=== PATIENT | male | born 1950 | race Caucasian/White ===

== ENCOUNTER 2023-05-04 08:49 | Outpatient (REF) | payer OTHER, SELFPAY ==
[2023-05-04 14:45] LABS: Appearance Urine Clear; Color Urine Yellow; Glucose Urine UA Negative (Negative); Leukocyte Esterase Urine Trace (Negative); Nitrite Urine Negative (Negative); UMIC TRIGGER UA YES; Urine Blood Negative (Negative); Urine Ketones Negative (Negative); Urine Protein Negative (Neg-Trace)
[2023-05-04 14:56] LABS: Bacteria Urine None Seen (None Seen); Hyaline Casts Urine 0-2 /LPF (0-2); RBC Urine 0-2 /HPF (0-2); Squamous Epithelial Cell Urine 0-2 /HPF (0-2); WBC Urine 0-5 /HPF (0-5)
[2023-05-04 20:10] LABS: Anion Gap 21 (12-20); Blood Urea Nitrogen 23 mg/dL (9-16); Carbon Dioxide 20 mmol/L (22-29); Chloride 99 mmol/L (96-108); Estimated Glomerular Filt Rate > 60; Glucose Random 90 mg/dL (60-115); Potassium 3.7 mmol/L (3.3-5.1); Sodium 136 mmol/L (135-145)
== END 2023-05-04 08:50 | disposition home or self-care (01) ==
LOC: HO.CHCLDS 08:49
PROVIDERS: Visit Provider Internal Medicine
DX: I10 Essential (primary) hypertension (principal); R30.0 Dysuria
CPT/HCPCS: 36415; 80048; 81001

== ENCOUNTER 2023-12-22 09:44 | Outpatient (REF) | payer OTHER, SELFPAY ==
[2023-12-22 14:12] LABS: MANUAL DIFF FLAG NO
[2023-12-22 14:15] LABS: Basophils Absolute Auto 0.1 X10*3/uL (0.0-0.2); Basophils Percent Auto 0.6 % (0-2); Eosinophils Absolute Auto 0.1 X10*3/uL (0.0-0.4); Eosinophils Percent Auto 0.6 % (0-4); Hematocrit 47.4 % (42.0-52.0); Hemoglobin 16.3 g/dl (14.0-18.0); Imm Gran Abs Auto 0.03 X10*3/uL (0.00-0.03); Imm Gran Pct Auto 0.4 % (0.0-0.4); Lymphocytes Absolute Auto 2.7 X10*3/uL (1.2-4.9); Lymphocytes Percent Auto 33.8 % (20-40); Mean Corpuscular HGB Conc 34.4 g/dl (31.0-36.0); Mean Corpuscular Volume 90.1 fL (80.0-98.0); Mean Platelet Volume 10.4 fL (9.4-12.4); Monocytes Absolute Auto 0.4 X10*3/uL (0.1-1.2); Monocytes Percent Auto 5.6 % (2-11); Neutrophils Absolute Auto 4.6 x10*3/uL (2.0-8.3); Platelet Count 210 X10*3/uL (160-400); Red Blood Count 5.26 X10*6/uL (4.60-5.80); Red Cell Distribution Width 13.3 % (11.0-16.0); White Blood Count 7.9 X10*3/uL (4.8-10.8)
[2023-12-22 15:00] LABS: Anion Gap 16 (12-20); Blood Urea Nitrogen 18 mg/dL (9-16); Calcium 9.5 mg/dL (8.4-10.2); Carbon Dioxide 26 mmol/L (22-29); Chloride 99 mmol/L (96-108); Cholesterol 156 mg/dL (<200); Estimated Glomerular Filt Rate > 60; Glucose Random 73 mg/dL (60-115); HDL Cholesterol 45 mg/dL (>40); LDL Cholesterol Calculated 79 mg/dL (<100); Potassium 3.6 mmol/L (3.3-5.1); Sodium 137 mmol/L (135-145); Triglycerides 160 mg/dL (<150)
[2023-12-22 15:18] LABS: TSH reflex Free T4 1.65 uIU/mL (0.32-4.0)
== END 2023-12-22 09:45 | disposition home or self-care (01) ==
LOC: HO.CHCLDS 09:44
PROVIDERS: Visit Provider Internal Medicine
DX: I10 Essential (primary) hypertension (principal)
CPT/HCPCS: 36415; 80048; 80061; 84443; 85025

== ENCOUNTER 2024-06-12 10:06 | Outpatient (AMB) | payer OTHER, SELFPAY ==
--- NOTE | 2024-06-12 10:10 | MHC.OFFVIS ---
Intake Visit Reasons: Dysuria/Enlarged Prostate Intake Note: Patient is present for dysuria/ enlarged prostae Urology Medication:none Antibiotic Allergy:none Blood Thinner:none [employer] Director Required: No Allergies No Known Allergies Allergy (Verified 06/12/24 10:11) Medication List - Last Reconciled 06/12/24 by Jarod Tong MD albuterol sulfate 90 mcg/actuation inhalation atorvastatin 40 mg PO DAILY clopidogrel 75 mg PO DAILY finasteride 5 mg PO DAILY 90 days losartan 100 mg PO DAILY oxycodone mg PO tamsulosin 0.4 mg PO DAILY umeclidinium 62.5 mcg/actuation (Incruse Ellipta) 1 inh inhalation DAILY HPI Comments Details: Abel is a very pleasant male. He is a patient of Dr. Cortes. He seen for the following urologic conditions - urinary retention Recent episode retention after vascular procedure - AAA repair Shannon catheter placed Removed PCP Longstanding on tamsulosin And finasteride for six-month Review of Systems Const Denies chills and Denies fever(s) Card Reports no additional complaints and Denies syncope Resp Denies cough GI Denies abdominal pain and Denies heartburn Reports as per HPI and Denies change in libido Neuro Denies syncope Psych Denies change in libido Endo Denies change in libido Physical Exam Const General: cooperative, healthy appearing, comfortable and no acute distress Orientation/consciousness: patient oriented x3 HEENT Face and sinus: Yes normal facial exam Mouth: moist mucous membranes Neck Neck: Yes normal visual inspection, Yes full ROM and Yes trachea midline Chest Chest palpation & inspection: normal inspection of the chest Resp Effort & Inspection: normal respiratory effort, able to speak in complete sentences and no respiratory distress GI Inspection: Yes normal to inspection Back/Spine/Pelvis Cervical Spine: normal cervical lordosis Thoracic/Lumbar Spine: thoracic and lumbar spine normal to inspection Skin General skin exam: no rashes or lesions noted Neuro General: patient oriented x3, gait normal, tone normal and moves all extremities Extrem General: Yes normal to inspection and Yes capillary refill normal Assessment & Plan Assessment & Plan (1) Weak urinary stream: Code(s): R39.12 - Poor urinary stream Category: Medical (2) Urinary retention with incomplete bladder emptying: Code(s): R33.9 - Retention of urine, unspecified Category: Medical Plan Six-month follow-up Medications: New finasteride 5 mg PO DAILY 90 days 90 tabs 1RF N13.8 - Other obstructive and reflux uropathy, N40.1 - Benign prostatic hyperplasia with lower urinary tract symptoms, R33.9 - Retention of urine, unspecified Patient Instructions: Imaging studies, laboratory and physical exam results were discussed and reviewed in detail. No major barriers to patient understanding were identified. An opportunity to ask questions regarding the treatment plan was provided. All questions were answered. The patient expressed understanding and agreement with the above treatment plan. The patient is aware they should contact our office by phone for worsening of their current condition or the appearance of new urologic symptoms. Compliance is encouraged with any medications and followup testing that is ordered. It is a privilege to participate in the urologic care of your patient. If you have any questions or concerns regarding treatment for the above conditions, or other urologic issues, please do not hesitate to contact me. The office telephone contact is [phone]. This note is constructed using voice recognition software. While every effort has been made to ensure accuracy cash person errors may have been included. Yours sincerely, Dr Jarod Tong MD, [facility] Providers of Expert, Compassionate Care for the Genitourinary System Coding Level of Care Code New Pt Level 4 (78632) Diagnoses Weak urinary stream R39.12 Urinary retention with incomplete bladder emptying R33.9
== END 2024-06-12 11:07 | disposition home or self-care (01) ==
PROVIDERS: PCP Internal Medicine; Visit Provider Urology
DX: R39.12 Poor urinary stream (principal); R33.9 Retention of urine, unspecified
CPT/HCPCS: 99204

== ENCOUNTER → 2024-06-12 10:06 | Outpatient (BNVA) | payer OTHER, SELFPAY | PROVIDERS: PCP Internal Medicine; Visit Provider Urology | DX: R39.12 Poor urinary stream (principal); R33.9 Retention of urine, unspecified | CPT/HCPCS: 99202 ==

== ENCOUNTER 2024-07-16 15:56 | Outpatient (REF) | payer OTHER, SELFPAY ==
[2024-07-16 17:57] LABS: MANUAL DIFF FLAG NO
[2024-07-16 18:18] LABS: Basophils Percent Auto 0.5 % (0-2); Eosinophils Absolute Auto 0.1 X10*3/uL (0.0-0.4); Eosinophils Percent Auto 1.2 % (0-4); Hematocrit 41.9 % (42.0-52.0); Hemoglobin 13.9 g/dl (14.0-18.0); Imm Gran Abs Auto 0.03 X10*3/uL (0.00-0.03); Imm Gran Pct Auto 0.4 % (0.0-0.4); Lymphocytes Absolute Auto 2.2 X10*3/uL (1.2-4.9); Lymphocytes Percent Auto 28.6 % (20-40); Mean Corpuscular HGB Conc 33.2 g/dl (31.0-36.0); Mean Corpuscular Hemoglobin 30.2 pg (27.0-33.0); Mean Corpuscular Volume 91.1 fL (80.0-98.0); Mean Platelet Volume 9.8 fL (9.4-12.4); Monocytes Absolute Auto 0.6 X10*3/uL (0.1-1.2); Monocytes Percent Auto 7.5 % (2-11); Neutrophils Absolute Auto 4.8 x10*3/uL (2.0-8.3); Neutrophils Percent Auto 61.8 % (45-73); Platelet Count 282 X10*3/uL (160-400); Red Cell Distribution Width 13.2 % (11.0-16.0); White Blood Count 7.7 X10*3/uL (4.8-10.8)
[2024-07-16 18:23] LABS: C Reactive Protein 6.44 mg/dL (< or = 0.50); Uric Acid 3.8 mg/dL (3.4-7.0)
[2024-07-16 19:20] LABS: Erythrocyte Sedimentation Rate 34 MM/HR (0-15)
== END 2024-07-16 15:57 | disposition home or self-care (01) ==
LOC: HO.CHCLDS 15:56
PROVIDERS: Visit Provider Internal Medicine
DX: M25.532 Pain in left wrist (principal)
CPT/HCPCS: 36415; 84550; 85025; 85652; 86140

== ENCOUNTER 2024-07-30 13:25 | Outpatient (REF) | payer OTHER, SELFPAY ==
[2024-07-30 15:20] LABS: Rheumatoid Factor < 13.0 IU/mL (<15.0)
[2024-07-31 19:08] LABS: Lyme Abs Screen <0.90 index
[2024-08-01 20:24] LABS: Cyclic Citrullinated Peptide <16 UNITS
== END 2024-07-30 13:26 | disposition home or self-care (01) ==
LOC: HO.CHCLDS 13:25
PROVIDERS: Visit Provider Internal Medicine
DX: M25.532 Pain in left wrist (principal)
CPT/HCPCS: 36415; 86200; 86431; 86617; 86618

== ENCOUNTER 2025-01-22 09:32 | Outpatient (REF) | payer OTHER, SELFPAY ==
--- OUTSIDE RECORDS SUMMARY | 2025-01-22 10:36 | XMS_ITS | Encounter Summary ---
Author Organization [employer] Address [address] [facility] [address] [place] [address] Care Team Providers Care Painter Sign Maintenance Name Role Phone Alexy Bae MD Primary Care Provider [phone] Reason for Referral * Consultation (Urgent) - Closed Specialty Diagnoses / Procedures Referred By Contdashawn t Referred To Contact Vascular Surgery Diagnoses Abdominal aortic aneurysm (AAA) 3.0 cm to 5.5 cm in diameter in male (CMS/HCC) Alexy Bae MD [address] [place] [address] Phone: tel: fax: [address] Phone: tel: fax: Referral ID Status Reason Start Date Expiration Date V isits Requested Visits Authorized [id number] Closed Specialty Services Required 03/29/2024 03/29/2025 1 0 Encounter Details Date Type Department Care Team (Late st Contact Info) Description 03/29/2024 Orders Only [facility] [address] [place], [place] [phone] Alexy Bae MD [address] [place] [address] Abdominal aortic aneurysm (AAA) 3.0 cm to 5.5 cm in diameter in male (CMS/HCC) (Primary Dx) Social History Tobacco Use Types Packs/Day Years Used Date Smoking Tobacco: Some Days Cigarettes Smokeless Tobacco: Never Comments:Now on 10/10 ppd x th e last 2 months. Sex and Gender Information Value Date Recorded Sex Assigned at Male 08/08/2022 10:40 AM EDT Legal Sex Male 10:40 AM EDT Gender Identity Male 08/08/2022 10:40 AM EDT Sexual Orientation Don't know 08/08/2022 10 :40 AM EDT documented as of this encounter Plan of Treatment Not on file documented as of this encounter Procedures Procedure Name Priority Date/Time Associated Diagnosis Comments AMB REFERRAL TO VASCULAR SURGERY Urgent 04/04/2024 Abdominal aortic aneurysm (AAA) 3.0 cm to 5.5 cm in diameter in male (CMS/HCC) documented in this encounter Results * Referral to Vascular Surgery (04/04/2024) us Alexy Bae MD OUTPATIENT REFERRAL ORDERAB LES Final Result documented in this encounter Visit Diagnoses Diagnosis Abdominal aortic aneurysm (AAA) 3.0 cm to 5.5 cm in diameter in male (CMS/HCC)- Primary documented in this encounter Care Teams Painter Sign Maintenance Relationship Specialty Start Date End Date Alexy Bae MD [address] [place] [id number] PCP - General Internal Medicine 03/04/22 documented as of this encounter
--- OUTSIDE RECORDS SUMMARY | 2025-01-22 10:36 | XMS_ITS | Encounter Summary ---
Author Organization [employer] Address [address] [facility] [address] [address] Care Team Providers Care Data Security Coordinator Name Role Phone Alexy Bae MD Primary Care Provider [phone] Reason for Referral * Consultation (Routine) - Pending Review Specialty Diagnoses / Procedures Referred By Contac t Referred To Contact Orthopaedic Surgery Diagnoses Primary osteoarthritis of both shoulders Alexy Bae MD [address] [place] [address] Phone: tel: fax: Referral ID Status Reason Start Date Expiration Date Visits Requested Visits Authorized [id number] Pending Review Specialty Services Required 01/22/2025 01/22/2026 1 1 * Consultation (Routine) - Pending Review Specialty Diagnoses / Procedures Referred By Contac t Referred To Contact Vascular Surgery Diagnoses Abdominal aortic aneurysm (AAA) without rupture, unspecified part (CMS/HCC) Alexy Bae MD [address] [place] [address] Phone: tel: fax: Tanner Cornelius MD [address] [place] [address] Phone: tel: fax: Referral ID Status Reason Start Date Expiration Date Visits Requested Visits Authorized [id number] Pending Review Specialty Services Required 01/22/2025 01/22/2026 1 1 Reason for Visit * Reason Comments Follow-up Encounter Details Date Type Department Care Team (Latest Contact Info) Description 01/22/2025 9:00 AM EDT Office Visit [facility] [address] [place] [address] Alexy Bae MD [address] [place] [address] Primary hypertension (Primary Dx); Chronic obstructive pulmonary disease, unspecified COPD type (CMS/HCC); Screening for colon cancer; Benign prostatic hyperplasia without lower urinary tract symptoms; Chronic obstructive pulmonary disease, unspecified COPD type (CMS/HCC); Primary osteoarthritis of both shoulders; Abdominal aortic aneurysm (AAA) without rupture, unspecified part (CMS/HCC) Social History Tobacco Use Types Packs/Day Years Used Date Smoking Tobacco: Some Days Cigarettes Smokeless Tobacco: Never Comments:Now on 10/10 ppd x th e last 2 months. Alcohol Answer Date Recorded How often do you have a drink containing alcohol ? 2 01/22/2025 How many drinks containing a lcohol do you have on a typical day when you are drinking? 0 01/22/2025 How often do you have six or more drinks on one occasion? 0 01/22/2025 Depression Answer Date Recorded Patient Health Questionnaire-9 Score 0 01/22/2025 Patient Health Questionnaire-9 Score 0 01/22/2025 Last PHQ-9: Questionnaire Data Not on file 0 01/22/2025 Housing Stability Answer Date Recorded What is your housing situation today? I have lester lan 07/09/[address] you li ve. Do you have problems with any of the following? None of the above 07/09/2024 Food Insecurity Answer Date Recorded Within the past 12 months, y ou worried that your food would run out before you got money to buy more: Never True 07/09/2024 Within the past 12 months,th e food you bought just didn't last and you didn't have enough money to get more: Never True 10/2023 Transportation Answer Date Recorded In the past 12 months, has l ack of transportation kept you from medical appts, meetings, work or from getting things needed for daily living? No 07/09/2024 Utilities Answer Date Recorded In the past 12 months, has t he electric, gas, oil or water company threatened to shut off services in your home? No 07/09/2024 Depression Answer Date Recorded Patient Health Questionnaire-2 Score 0 01/22/2025 Internet Access Answer Date Recorded Internet Access Q1 Yes 07/09/2024 Internet Access Q2 Not on file 07/09/2024 Sex and Gender Information Value Date Recorded Sex Assigned at Male 08/08/2022 10:40 AM EDT Legal Sex Male 10:40 AM EDT Gender Identity Male 08/08/2022 10:40 AM EDT Sexual Orientation Don't know 08/08/2022 10 :40 AM EDT documented as of this encounter Last Filed Vital Signs Vital Sign Reading Time Taken Comments Blood Pressure 145/78 01/22/2025 9:08 AM EDT Pulse 70 01/22/2025 9:08 AM EDT Temperature 36.7 ??C (98 ??F) 01/22/2025 9:08 AM EDT Respiratory Rate 20 01/22/2025 9:08 AM EDT Oxygen Saturation 95% 01/22/2025 9:08 AM EDT Inhaled Oxygen Concentration - - Weight 77.1 kg (170 lb) 01/22/2025 9:08 AM EDT Height 177.8 cm (5' 10 ) 01/22/2025 9:08 AM EDT Body Mass Index 24.39 01/22/2025 9:08 AM EDT documented in this encounter Progress Notes * Alexy Bae MD - 01/22/2025 9:00 AM EDT Subjective Patient ID: Abel Obando is a 74 y.o. male who presents for Follow-up. HPI 1) history of hypertension. Patient checked his blood pressure this morning it was 138/70. He denies any headache or blurry vision. His blood pressure is overall at goal at home. 2) history of osteoarthritis. Was evaluated by rheumatology and received an injection of the right wrist with partial improvement of his symptoms. He still experience bilateral knee pain bilateral shoulder pain. His pain is overall tolerable and he takes an occasional ibuprofen. Patient needs a newreferral to his orthopedic surgeon. 3) history of COPD. Patient is an active smoker. Smokes half a pack of cigarettes a day. 4) history of abdominal aortic of the rhythm. S/p endovascular graft placement. Doing overall well.Patient needs a new referral to his surgeon Patient Active Problem List Diagnosis Benign prostatic hyperplasia Chronic obstructive lung disease (CMS/HCC) Hypertensive disorder Kidney cysts Liver cyst No Known Allergies Current Outpatient Medications on File Prior to Visit Medication Sig Dispense Refill albuterol 108 (90 Base) MCG/ACT inhaler Inhale 2 puffs every 4 (four) hours if needed for wheezing.Please provide 3 months supply. 18 g 3 amLODIPine (Norvasc) 5 MG tablet Take 1 tablet (5 mg) by mouth Once per day. 30 tablet 11 atorvastatin (Lipitor) 40 MG tablet TAKE 1 TABLET BY MOUTH IN THE MORNING 90 tablet 3 Blood Pressure kit To check the BP daily 1 kit 0 capsaicin (Zostrix) 0.025 % cream Apply topically 2 times daily. 56.6 g 2 chlorthalidone (Hygroton) 25 MG tablet Take 1 tablet (25 mg) by mouth Once per day. 90 tablet 3 Diclofenac Sodium 1 % gel To apply to the affected area 3 times a day 100 g 0 losartan (Cozaar) 100 MG tablet TAKE 1 TABLET BY MOUTH ONCE A DAY 90 tablet 2 tamsulosin (Flomax) 0.4 MG 24 hr capsule TAKE 1 CAPSULE BY MOUTH IN THE MORNING 90 capsule 3 Umeclidinium Causey (Incruse Ellipta) 62.5 MCG/ACT aerosol powder Inhale 62.5 mcg Once per day. 1 each 11 No current facility-administered medications on file prior to visit. Review of Systems Constitutional: Negative for appetite change, chills and diaphoresis. Eyes: Negative for photophobia, pain and redness. Respiratory: Negative for cough, choking and shortness of breath. Gastrointestinal: Negative for anal bleeding and blood in stool. Musculoskeletal: Positive for arthralgias. Skin: Negative for pallor and rash. Objective BP (!) 145/78 (BP Location: Left arm, Patient Position: Sitting, BP Cuff Size: Adult long) Pulse 70 Temp 98 ??F (36.7 ??C) (Oral) Resp 20 Ht 5' 10 (1.778 m) Wt 170 lb (77.1 kg) SpO2 95% BMI 24.39 kg/m?? Physical Exam Constitutional: General: He is not in acute distress. Appearance: Normal appearance. He is not ill-appearing, toxic-appearing or diaphoretic. Cardiovascular: Rate and Rhythm: Normal rate. Pulmonary: Effort: Pulmonary effort is normal. Abdominal: General: Abdomen is flat. Palpations: Abdomen is soft. Neurological: General: No focal deficit present. Mental Status: He is alert. Psychiatric: Mood and Affect: Mood normal. Assessment/Plan Diagnoses and all orders for this visit: Primary hypertension Comments: BP is at goal at home Continue with the DASH diet Keep the log to share with the office at the next visit. No change in meds. Chronic obstructive pulmonary disease, unspecified COPD type (CMS/HCC) Comments: No shortness of breath at rest. Exercise tolerance more than 4 METS. Albuterol refills sent. Orders: - albuterol 108 (90 Base) MCG/ACT inhaler; Inhale 2 puffs every 4 (four) hours if needed for wheezing. Please provide 3 months supply. Screening for colon cancer - Cologuard?? colon cancer screening; Future Benign prostatic hyperplasia without lower urinary tract symptoms Comments: Continue with tamsulosin Risk and benefits of this medication discussed. Orders: - Hepatitis C Antibody with Reflex to HCV, RNA, Quantitative, Real-Time PCR; Future Chronic obstructive pulmonary disease, unspecified COPD type (CMS/HCC) - albuterol 108 (90 Base) MCG/ACT inhaler; Inhale 2 puffs every 4 (four) hours if needed for wheezing. Please provide 3 months supply. Primary osteoarthritis of both shoulders - Referral to Orthopaedic Surgery; Future Abdominal aortic aneurysm (AAA) without rupture, unspecified part (CMS/HCC) - Referral to Vascular Surgery; Future documented in this encounter Plan of Treatment Scheduled Orders Name Type Priority Associated Diagnoses Orde r Schedule Hepatitis C Antibody with Reflex to HCV, RNA, Quantitative, Real-Time PCR Lab Routine Benign prostatic hyperplasia without lower urinary tract symptoms Expected: 01/22/2025, Expires: 01/22/2026 Cologuard?? colon cancer screening Lab Routine Screening for colon cancer Expected: 01/22/2025 (Approximate), Expires: 01/22/2026 Scheduled Referrals Name Type Priority Associated Diagnoses Orde r Schedule Referral to Vascular Surgery Outpatient Referral Routine Abdominal aortic aneurysm (AAA) without rupture, unspecified part (CMS/HCC) Expected: 01/22/2025 (Approximate), Expires: 01/22/2026 Referral to Orthopaedic Surgery Outpatient Referral Routine Primary osteoarthritis of both shoulders Expected: 01/22/2025 (Approximate), Expires: 01/22/2026 documented as of this encounter Visit Diagnoses Diagnosis Primary hypertension- Primary Unspecified essential hypertension Chronic obstructive pulmonary disease, unspecified COPD type (CMS/HCC) Screening for colon cancer Special screening for malignant neoplasms, colon Benign prostatic hyperplasia without lower urinary tract symptoms Primary osteoarthritis of both shoulders Abdominal aortic aneurysm (AAA) without rupture, unspecified part (CMS/HCC) documented in this encounter Additional Health Concerns Assessment Noted Time PHQ-9 Depression Total Score: 0 01/23/20 25 9:15 AM EDT documented as of this encounter Care Teams Data Security Coordinator Relationship Specialty Start Date End Date Alexy Bae MD [address] [place] [id number] PCP - General Internal Medicine 03/04/22 documented as of this encounter
--- OUTSIDE RECORDS SUMMARY | 2025-01-22 10:36 | XMS_ITS | Clinical Summary ---
Author Organization [employer] Address [address] [facility] [address] [place] [address] Care Team Providers Care Insert Cutter Name Role Phone Alexy Bae MD Primary Care Provider [phone] Allergies No known active allergies Medications Blood Pressure kit To check the BP daily 1 kit 03/23/20 23 Active Umeclidinium [place] (Incruse Ellipta) 62.5 MCG/ACT aerosol powderIndicatio ns:Chronic obstructive pulmonary disease, unspecified COPD type (CMS/HCC) Inhale 62.5 mcg Once per day. 1 each 11 03/13/20 24 Active tamsulosin (Flomax) 0.4 MG 24 hr capsuleIndicati ons:Dysuria TAKE 1 CAPSULE BY MOUTH IN THE MORNING 90 capsule 3 06/11/20 24 Active chlorthalidone (Hygroton) 25 MG tabletIndicatio ns:Primary hypertension Take 1 tablet (25 mg) by mouth Once per day. 90 tablet 3 07/09/20 24 025 Active amLODIPine (Norvasc) 5 MG tabletIndicatio ns:Primary hypertension Take 1 tablet (5 mg) by mouth Once per day. 30 tablet 11 07/16/20 24 025 Active Diclofenac Sodium 1 % gelIndications: Left wrist pain To apply to the affected area 3 times a day 100 g 08/08/20 24 Active capsaicin (Zostrix) 0.025 % creamIndication s:Left wrist pain Apply topically 2 times daily. 56.6 g 2 10/17/19 25 026 Active losartan (Cozaar) 100 MG tabletIndicatio ns:Primary hypertension TAKE 1 TABLET BY MOUTH ONCE A DAY 90 tablet 2 11/19/19 25 Active atorvastatin (Lipitor) 40 MG tabletIndicatio ns:Hypercholest erolemia TAKE 1 TABLET BY MOUTH IN THE MORNING 90 tablet 3 01/09/20 25 Active albuterol 108 (90 Base) MCG/ACT inhalerIndicati ons:Chronic obstructive pulmonary disease, unspecified COPD type (CMS/HCC),Chron ic obstructive pulmonary disease, unspecified COPD type (CMS/HCC) Inhale 2 puffs every 4 (four) hours if needed for wheezing. Please provide 3 months supply. 18 g 3 01/23/20 25 026 Active albuterol 108 (90 Base) MCG/ACT inhalerIndicati ons:Chronic obstructive pulmonary disease, unspecified COPD type (CMS/HCC) Inhale 2 puffs every 4 (four) hours if needed for wheezing. Please provide 3 months supply. 18 g 3 08/28/20 23 025 Discontinued(Re order (will not trigger notification to Pharmacy)) atorvastatin (Lipitor) 40 MG tabletIndicatio ns:Hypercholest erolemia Take 1 tablet (40 mg) by mouth in the morning. 90 tablet 3 12/27/19 24 025 Discontinued Active Problems Problem Noted Date Diagnosed Date Primary osteoarthritis of both shoulders 025 Abdominal aortic aneurysm (AAA) without rupture 01/22/2025 Kidney cysts 11/01/2022 Liver cyst 11/01/2022 Benign prostatic hyperplasia 05/25/2022 Chronic obstructive lung disease 05/25/2022 Hypertensive disorder 05/25/2022 Encounters Date Type Department Care Team Description 01/22/2025 9:00 AM EDT Office Visit [facility] [address] [place] [address] Alexy Bae MD Primary hypertension (Primary Dx); Chronic obstructive pulmonary disease, unspecified COPD type (CMS/HCC); Screening for colon cancer; Benign prostatic hyperplasia without lower urinary tract symptoms; Chronic obstructive pulmonary disease, unspecified COPD type (CMS/HCC); Primary osteoarthritis of both shoulders; Abdominal aortic aneurysm (AAA) without rupture, unspecified part (CMS/HCC) 01/22/2025 Travel 01/08/2025 Refill [facility] [address] [place] [address] Alexy Bae MD Hypercholesterolemia 11/16/2024 Refill [facility] [address] [place] [address] Alexy Bae MD Primary hypertension from Last 3 Months Immunizations Name Administration Dates Next Due Influenza High-dose Quadriva lent Preservative Free 08/28/2023,07/19/2022 Influenza, High Dose Seasona l, Preservative Free 07/30/2024,06/25/2021,08/01/2020,08/14,2018 Influenza, IIV3, injectable 09/16/2013, 2 Pneumococcal Conjugate PCV 13 01/26/2018 Pneumococcal Polysaccharide PPSV23 11/04/2019 Tdap 01/02/2012 Zoster, Recombinant 10/30/2020 Social History Tobacco Use Types Packs/Day Years Used Date Smoking Tobacco: Some Days Cigarettes Smokeless Tobacco: Never Tobacco Cessation:Ready to Q uit: Not Asked; Counseling Given: Not Answered Comments:Now on 10/10 ppd x the last 2 months. Alcohol Answer Date Recorded [...] is your housing situation today? I have lesterterrance lan 07/09/[address] you [...] Don't know 08/08/2022 10 :40 AM EDT Last Filed Vital Signs Vital Sign Reading [...] Mass Index 24.39 01/22/2025 9:08 AM EDT Plan of Treatment Health Maintenance Due Date Last Done Comments CT Colonography 1950 Colonoscopy 1950 Colorectal Cancer Screening 1950 FIT DNA/Cologuard 1951 FIT 1950 FOBT 1950 Sigmoidoscopy 1950 Hepatitis C Screening 1969 Hepatitis A Vaccines (1 of 2 - Risk 2-dose series) 1970 Hepatitis B Vaccines (1 of 3 - Risk 3-dose series) 2011 RSV Patients and Patients Aged 60 years or older (1 - Risk 60-74 years 1-dose series) 2011 Zoster Vaccines (2 of 2) 12/25/2020 10/30/2020 DTaP/Tdap/Td Vaccines (2 - Td or Tdap) 01/01/2022 01/02/2012 COVID-19 Vaccine (3 - season) 2024 12/30/2020, 12/02/2020 SDOH Screening 07/09/2025 07/09/2024 Alcohol/Substance Use Screening 01/22/2026 01/22/2025 Depression Screening 01/22/2026 01/22/2025, 01/23/20 Tobacco Screening 01/22/2026 01/22/2025 Lipid Panel 12/21/2028 12/22/2023, 06/10/2022 Pneumococcal Vaccine: 50+ Years Completed 11/04/2019, 01/26/2018 Influenza Vaccine Completed 07/30/2024, , 07/19/2022, Additional history exists HIB Vaccines Aged Out No longer eligi ble based on patient's age to complete this topic HPV Vaccines Aged Out No longer eligi ble based on patient's age to complete this topic IPV Vaccines Aged Out No longer eligi ble based on patient's age to complete this topic Meningococcal Vaccine Aged Out No norma adis eligible based on patient's age to complete this topic RSV under 20 months Aged Out No longe r eligible based on patient's age to complete this topic Rotavirus Vaccines Aged Out No longer eligible based on patient's age to complete this topic Procedures Procedure Name Priority Date/Time Associated Diagnosis Comments AMB REFERRAL TO RHEUMATOLOGY Routine 10/28/2024 Left wrist pain Acute pain of left shoulder LIPID PANEL, STANDARD Routine 12/22/2023 9:45 AM EDT Primary hypertension from Last 3 Months or Most Recently Relevant to Health Maintenance Results * Referral to Rheumatology (10/28/2024) us Alexy Bae MD OUTPATIENT REFERRAL ORDERAB LES Final Result * (ABNORMAL) Lipid Panel, Standard (12/22/2023 9:45 AM EDT) Triglycerides 160(H) <150 mg/dL [facility] Comment:Desirable Triglyceri de: less than 150 mg/dLBorderline High Triglyceride 150-199 mg/dLHigh Triglyceride: 200-499 mg/dLVery High Triglyceride: greater than or equal to 5OO mg/dL Cholesterol 156 <200 mg/dL [facility] Comment:Desirable Cholestero l: less than 200 mg/dLBorderline High Cholesterol: 200-239 mg/dLHigh Cholesterol: greater than 239 mg/dL LDL Cholesterol Calculated 79 <100 mg/dL [facility] Comment:Desirable LDL: less than 100 mg/dLNear Optimal/Above Optimal LDL: 110- 129 mg/dLBorderline High LDL: 130-159 mg/dLHigh LDL: 160-189 mg/dLVery High LDL: greater than or equal to 190 mg/dL HDL Cholesterol 45 >40 mg/dL [facility] Comment:Desirable HDL: great er than 40 mg/dL Note: This HDL assay may give artificially low results in patients with liver disease. Blood Venous blood specimen / Unknown 12/22/2023 9:45 AM EDT 12/22/2023 2:01 PM EDT us Alexy Bae MD LAB BLOOD ORDERABLES Final Result [facility] [address] [place] [address] [phone] from Last 3 Months or Most Recently Relevant to Health Maintenance Insurance [employer] [facility] Care Teams Insert Cutter Relationship Specialty Start Date End Date Alexy Bae MD [address] [place] [id number] PCP - General Internal Medicine 03/04/22
--- OUTSIDE RECORDS SUMMARY | 2025-01-22 10:36 | XMS_ITS | Encounter Summary ---
Author Organization [employer] Address [address] [place] [address] Care Team Providers Care Donor Floor Technician Name Role Phone Alexy Bae MD Primary Care Provider [phone] Encounter Details Date Type Department Care Team (Latest Contact Info) Description 01/22/2025 Travel Social History Tobacco Use Types Packs/Day Years [...] on file documented as of this encounter Visit Diagnoses Not on filedocumented in this encounter Additional Health Concerns Assessment Noted Time PHQ-9 Depression Total Score: 0 01/23/20 25 9:15 AM EDT documented as of this encounter Care Teams Donor Floor Technician Relationship Specialty Start Date End Date Alexy Bae MD [address] [place] [id number] PCP - General Internal Medicine 03/04/22 documented as of this encounter
--- OUTSIDE RECORDS SUMMARY | 2025-01-22 10:36 | XMS_ITS | Encounter Summary ---
Author Organization [employer] Address [address] [facility] [address] [place] [address] Care Team Providers Care Can Reforming Machine Operator Name Role Phone Alexy Bae MD Primary Care Provider [phone] Encounter Details Date Type Department Care Team ([facility] st Contact Info) Description 04/24/2023 Orders Only [facility] [address] [place], [place] [phone] Alexy Bae MD [address] [place], [place] [phone] Primary hypertension (Primary Dx) Social History Tobacco Use Types [...] Don't know 08/08/2022 10 :40 AM EDT COVID-19 Exposure Response Date Recorded In the last 10 days, have yo u been in contact with someone who was confirmed or suspected to have Coronavirus/COVID-19? No / Unsure 04/17/2023 8:22 PM EDT documented as of this encounter Plan of Treatment Not on file documented as of this encounter Procedures Procedure Name Priority Date/Time Associated Diagnosis Comments BASIC METABOLIC PANEL Routine 05/04/2023 9:04 AM EDT Primary hypertension documented in this encounter Results * (ABNORMAL) Basic Metabolic Panel (05/04/2023 9:04 AM EDT) Sodium 136 135 - 145 mmol/L [facility] Potassium 3.7 3.3 - 5.1 mmol/L [facility] Chloride 99 96 - 108 mmol/L [facility] Carbon Dioxide 20(L) 22 - 29 mmol/L [facility] Anion Gap 21(H) 12 - 20 [facility] Urea Nitrogen (BUN) 23(H) 9 - 16 mg/dL [facility] Creatinine, Serum 0.94 0.5 - 1.4 mg/dL [facility] Estimated Glomerular Filt Rate >60 [facility] Comment:NOTE: For -Am erican individuals, multiply the result by 1.210.Chronic Kidney Disease: Estimated GFR < 60 mL/min/1.14m2Njbwbm Kidney Disease: Estimated GFR < 15 mL/min/1.73m2 Glucose 90 60 - 115 mg/dL [facility] Calcium 10.0 8.4 - 10.2 mg/dL [facility] Blood Venous blood specimen / Unknown 05/04/2023 9:04 AM EDT 05/04/2023 2:07 PM EDT Alexy Bae MD LAB BLOOD ORDERABLES Final Result [facility] [address] [place] [address] [phone] documented in this encounter Visit Diagnoses Diagnosis Primary hypertension- Primary Unspecified essential hypertension documented in this encounter Care Teams Can Reforming Machine Operator Relationship Specialty Start Date End Date Alexy Bae MD [address] [place] [id number] PCP - General Internal Medicine 03/04/22 documented as of this encounter
--- OUTSIDE RECORDS SUMMARY | 2025-01-22 10:36 | XMS_ITS | Encounter Summary ---
Author Organization [employer] Address [address] [facility] [address] [place] [address] Care Team Providers Care Manager Internet Retails Sales Name Role Phone Alexy Bae MD Primary Care Provider [phone] Reason for Visit * Reason Onset Date Comments Referral 04/10/2024 Encounter Details Date Type Department Care Team ([facility] st Contact Info) Description 04/10/2024 Telephone [facility] [address] [place], [place] [phone] Alexy Bae MD [address] [place] [address] Referral Social History Tobacco Use Types Packs/Day Years [...] AM EDT documented as of this encounter Miscellaneous Notes * Telephone Encounter - Telma Ramsey - 04/10/2024 9:34 AM EDT Tc from pt requesting for vascular surgery referral to be re faxed to Dr. Cornelius located at [facility] vascular services. States office has not received referral. documented in this encounter Plan of Treatment Not on file documented as of this encounter Visit Diagnoses Not on filedocumented in this encounter Care Teams Manager Internet Retails Sales Relationship Specialty Start Date End Date Alexy Bae MD [address] [place] [phone] PCP - General Internal Medicine 03/04/22 documented as of this encounter
--- OUTSIDE RECORDS SUMMARY | 2025-01-22 10:36 | XMS_ITS | Encounter Summary ---
Author Organization [employer] Address [address] [facility] [address] [place] [address] Care Team Providers Care Quality Rep Name Role Phone Alexy Bae MD Primary Care Provider [phone] Encounter Details Date Type Department Care Team ([facility] st Contact Info) Description 07/17/2024 Orders Only [facility] [address] [place], [place] [phone] Alexy Bae MD [address] [place] [address] Left wrist pain (Primary Dx) Social History Tobacco Use Types Packs/Day Years Used Date Smoking Tobacco: Some Days Cigarettes Smokeless Tobacco: Never Comments:Now on 10/10 ppd x th e last 2 months. Housing Stability Answer Date Recorded What is [...] off services in your home? No 07/09/2024 Internet Access Answer Date Recorded Internet Access [...] Procedure Name Priority Date/Time Associated Diagnosis Comments XR WRIST 3+ VIEWS LEFT Routine 07/18/2024 Left wrist pain documented in this encounter Results * XR Wrist 3+ Views Left (07/18/2024) Anatomical Region Laterality Modality Upper Extremities, Wrist Left Radiogr aphic Imaging us Alexy Bae MD IMG XR PROCEDURES Final Res ult documented in this encounter Visit Diagnoses Diagnosis Left wrist pain- Primary Pain in joint, forearm documented in this encounter Care Teams Quality Rep Relationship Specialty Start Date End Date Alexy Bae MD [address] [place] [id number] PCP - General Internal Medicine 03/04/22 documented as of this encounter
--- OUTSIDE RECORDS SUMMARY | 2025-01-22 10:36 | XMS_ITS | Clinical Summary ---
Author Organization [facility] Address [address] [place] [address] Phone Care Team Providers Care Guide Name Role Phone Alexy Bae MD Primary Care Provider [phone] Surgical History Surgery Date Site/Laterality Comments COLONOSCOPY 05/21/2020 PROCEDURE: HISTORICAL COLONOSCOPY; COMMENT: 6 mm rectal polyp: Hyperplastic. SHOULDER ARTHROSCOPY 01/17/2022 Right PROCEDURE: [place] SURGICAL ARTHROSCOPY SHOULDER W/LSS&RESCJ ADS; COMMENT: rotator cuff repair with bio inductive implant augmentation, minimal subacromial decompression, labral debridement with Dr. Smith OTHER SURGICAL HISTORY 05/22/2024 Right PROCEDURE: [place] OPN FEM ART EXPOS DLVR EVASC PROSTH UNI OTHER SURGICAL HISTORY 05/22/2024 Left PROCEDURE: [place] PERQ ACCESS & CLOSURE FEM ART FOR DELIVERY NDGFT OTHER SURGICAL HISTORY 05/22/2024 PROCEDURE: [place] EVASC RPR DPLMNT [id number] NDGFT OTHER SURGICAL HISTORY 05/22/2024 PROCEDURE: [place] PLACEMENT XTN PROSTH FOR ENDOVASCULAR RPR Medical History Medical History Date Comments Shoulder pain DX:Shoulder pain Colon polyps DX:Colon polyps; COMMENT: precancerous-CN Q5Y Essential hypertension DX:Essent ial hypertension Hyperlipidemia DX:Hyperlipidemi a Asthma DX:Asthma Family History Medical History Relation Name Comments Abdominal Aortic Anuerysm (AAA) Brother 1 Heart attack Brother 1 smoker Heart attack Brother 2 smoker Heart attack Brother 3 smoker Ovarian cancer Daughter 1 Heart attack Father Other: smoker Father Abdominal Aortic Anuerysm (AAA) Mother Relation Name Status Comments Brother 1 (Age 71) ruptured t horacic aneurysm, prostate cancer Brother 2 (Age 72) RI, kidney and liver failure Brother 3 Alive RI, age 72 Daughter 1 (Age 38) ovarian ca ncer Daughter 2 Alive healthy age 39 Father (Age 84) RI x8 Mother thoracic aneury sm, gallbladder removed Sister 1 Alive breast cancer, age 71 Sister 2 Alive healthy, age 67 Social History Tobacco Use Types Packs/Day Years Used Date Smoking Tobacco: Every Day Cigarettes Smokeless Tobacco: Never Alcohol Use Standard Drinks/Week Comments Yes 2 (1 standard drink = 0.6 oz pur e alcohol) Sex and Gender Information Value Date Recorded Sex Assigned at Not on file Legal Sex Male 6:41 AM EST Gender Identity Not on file Sexual Orientation Not on file Obstetrics History Last Filed Vital Signs Vital Sign Reading Time Taken Comments Blood Pressure 130/80 07/29/2024 2:17 PM EDT Pulse 80 07/29/2024 2:17 PM EDT Temperature - - Respiratory Rate - - Oxygen Saturation - - Inhaled Oxygen Concentration - - Weight 75.8 kg (167 lb) 07/29/2024 2:17 PM EDT Height 182.9 cm (6') 07/29/2024 2:17 PM EDT Body Mass Index 22.65 07/29/2024 2:17 PM EDT Plan of Treatment Upcoming Encounters Date Type Department Care Team (Late st Contact Info) Description 08/01/2025 9:30 AM EDT Office Visit Vascular Surgery - [place] [address] [place] [address] Tanner Cornelius MD [address] [place] [address] Health Maintenance Due Date Last Done Comments Hepatitis A Vaccines (1 of 2 - Risk 2-dose series) 1970 Hepatitis B Vaccines (1 of 3 - Risk 3-dose series) 2011 RSV Immunization Adult Patients (1 - Risk 60-74 years 1-dose series) 2011 Zoster Vaccines (2 of 2) 12/25/2020 10/30/2020 DTaP,Tdap,and Td Vaccines (2 - Td or Tdap) 01/01/2022 01/02/2012 Colorectal Cancer Screening: Colonoscopy 09/17/2022 Depression Screening 09/17/2022 Falls Risk Assessment 09/17/2022 Hepatitis C Screening 09/17/2022 Social Influencers of Health Screening 09/17/2022 Hypertension/CHF/CAD Annual BMP Blood Test 09/18/2022 COVID-19 Vaccine ( season) 2024 12/30/2020, 12/02/2020 Lung Cancer Screening (Low Dose CT) 04/26/2025 04/26/2024, 04/19/2024, 04/17/2023, Additional history exists Cholesterol Screening (Lipid Panel) 12/21/2028 12/22/2023 Pneumococcal Vaccine: 50+ Years Completed 11/04/2019, 01/26/2018 [...] on patient's age to complete this topic MMR Vaccines Aged Out No longer eligi ble based on patient's age to complete this topic Meningococcal ACWY Vaccine Aged Out N o longer eligible based on patient's age to complete this topic Meningococcal B Vaccine Aged Out No l onger eligible based on patient's age to complete this topic RSV Immunization Patients Under 20 months Aged Out No longer eligible based on patient's age to complete this topic Varicella Vaccines Aged Out No longer eligible based on patient's age to complete this topic Procedures Procedure Name Priority Date/Time Associated Diagnosis Comments CT LUNG SCREENING LOW DOSE Routine 04/26/2024 4:50 PM EDT Personal history of nicotine dependence from Last 3 Months or Most Recently Relevant to Health Maintenance Results * CT LUNG SCREENING LOW DOSE (04/26/2024 4:50 PM EDT) Anatomical Region Laterality Modality Computed Tomogra phy 04/19/2024 8:08 AM EDT Narrative 04/26/2024 4:50 PM EDT [facility] Diagnostic Imaging Department [address] [place] [address] [id number] Patient: ??ABEL OBANDO ?/Age/Sex: 1950 - 73 - M Unit#: ??[id number] ? Location/Status: ??SPDICATLS/REG CLI ? Mnemonic/Ordering Site: ??CTLUNGLD/SPCT Ordering Physician: ??OSCAR GREENBERG MD CT Lung Screening Low Dose - 04/19/24816 Report Status:Signed History: ??73 year-old 57 pack-year current smoker, asymptomatic, for lung cancer screening. Known coronary artery disease. Comparison: 04/14/23 Technique: Helical volumetric imaging of the thorax was performed, using low- dose technique, without IV contrast. DLP: 118.62 mGy/cm ??CTDIvol: 3.22 mGy [employer] VCT Iterative reconstruction technique Findings: Lungs and Airways: The trachea and central bronchial tree remain patent. Scattered foci of peripheral mucous plugging are noted. Diffuse bronchial wall thickening is consistent with bronchitis, unchanged. Centrilobular and paraseptal emphysema are again seen. Symmetric biapical pleural-parenchymal scarring is stable. A 7 x 6 cm solid, noncalcified juxtapleural nodule is unchanged in the medial aspect of the left upper lobe (image 102 series 3). Several sub-5 mm solid, noncalcified nodules are scattered elsewhere in both lungs, also unchanged. No suspicious developing nodule is seen. Pleura: No pleural or pericardial effusions are seen. Base of neck, mediastinum and heart: Subcentimeter lymph nodes are scattered within the mediastinum, without significant change. No developing lymphadenopathy is seen. Calcified lymph nodes in the left hilum are consistent with old granulomatous disease. The heart remains normal in size. Soft tissues: The overlying soft tissues are unremarkable. Abdomen: This study was performed without contrast and with lower than standard dose. These factors reduce the sensitivity for detection of small lesions in the upper abdomen. Stable hypoattenuating hepatic lesions are most likely cysts. A 13 mm right adrenal nodule is unchanged and has CT numbers consistent with an adenoma. Impression: No suspicious developing pulmonary nodule. No significant change. Lung RADS 2: Benign Appearance or Behavior - Continue annual screening with LDCT in 12 months. [id number] [id number] [id number] Dictating Physician: ??JOSLYN MATHIS MD Electronically Signed by: ??JOSLYN MATHIS MD Dic Date/Time: ??04/26/24 1633 Sign date/Time: ??04/26/24 1650 Procedure Note Joslyn Mathis MD - 07/24/2024 [facility] Diagnostic Imaging Department [address] [place] [address] Patient: ALISONABEL /Age/Sex: 1950 - 73 - M Unit#: [id number] Location/Status: SPDICATLS/REG CLI Mnemonic/Ordering Site: [facility] Ordering Physician: OSCAR GREENBERG MD CT Lung Screening Low Dose - 04/19/24 - 816 Report Status:Signed History: 73 year-old 57 pack-year current smoker, asymptomatic, for lungcancer screening. Known coronary artery disease. Comparison: 04/14/23 Technique: Helical volumetric imaging of the thorax was performed, usinglow- dose technique, without IV contrast. DLP: 118.62 mGy/cm CTDIvol: 3.22 mGy [employer] VCT Iterative reconstruction technique Findings: Lungs and Airways: The trachea and central bronchial tree remain patent. Scattered foci of peripheral mucous plugging are noted. Diffuse bronchialwall thickening is consistent with bronchitis, unchanged. Centrilobular and paraseptal emphysema are again seen. Symmetric biapicalpleural-parenchymal scarring is stable. A 7 x 6 cm solid, noncalcified juxtapleural nodule is unchanged in themedial aspect of the left upper lobe (image 102 series 3). Several sub-5 mmsolid, noncalcified nodules are scattered elsewhere in both lungs, alsounchanged. No suspicious developing nodule is seen. Pleura: No pleural or pericardial effusions are seen. Base of neck, mediastinum and heart: Subcentimeter lymph nodes arescattered within the mediastinum, without significant change. No developing lymphadenopathy is seen. Calcified lymph nodes in the left hilum areconsistent with old granulomatous disease. The heart remains normal in size. Soft tissues: The overlying soft tissues are unremarkable. Abdomen: This study was performed without contrast and with lower thanstandard dose. These factors reduce the sensitivity for detection of small lesionsin the upper abdomen. Stable hypoattenuating hepatic lesions are most likelycysts. A 13 mm right adrenal nodule is unchanged and has CT numbers consistent withan adenoma. Impression: No suspicious developing pulmonary nodule. No significant change. Lung RADS 2: Benign Appearance or Behavior - Continue annual screeningwith LDCT in 12 months. [id number] [id number] [id number] Dictating Physician: JOSLYN MATHIS MD Electronically Signed by: JOSLYN MATHIS MD Dic Date/Time: 04/26/24 1633 Sign date/Time: 04/26/24 1650 Oscar Greenberg MD IMG CT PROCEDURES Final Result from Last 3 Months or Most Recently Relevant to Health Maintenance Care Teams Guide Relationship Specialty Start Date End Date Alexy Bae MD [address] [place] [address] PCP - General 05/15/24
--- OUTSIDE RECORDS SUMMARY | 2025-01-22 10:36 | XMS_ITS | Encounter Summary ---
Author Organization [employer] Address [address] [facility] [address] [place] [address] Care Team Providers Care Diesel Trailer Mechanic Name Role Phone Alexy Bae MD Primary Care Provider [phone] Encounter Details Date Type Department Care Team (Late st Contact Info) Description 06/20/2023 Orders Only [facility] CHC MED & PEDS [address], [place] [phone] Alexy Bae MD [address] [place] [address] Dysuria Social History Tobacco Use Types Packs/Day Years [...] as of this encounter Visit Diagnoses Diagnosis Dysuria documented in this encounter Care Teams Diesel Trailer Mechanic Relationship Specialty Start Date End Date Alexy Bae MD [address] [place] [address] PCP - General Internal Medicine 03/04/22 documented as of this encounter
--- OUTSIDE RECORDS SUMMARY | 2025-01-22 10:36 | XMS_ITS | Encounter Summary ---
Author Organization [employer] Address [address] [place] [address] Care Team Providers Care Mobile Crane Operator Name Role Phone Alexy Bae MD Primary Care Provider [phone] Encounter Details Date Type Department Care Team (Late st Contact Info) Description 04/29/2024 Orders Only [facility] CHC MED & PEDS [address] [place], [place] [phone] Provider, Historical, Social History Tobacco Use Types Packs/Day Years [...] Date/Time Associated Diagnosis Comments CT LUNG SCREENING Routine 04/19/2024 9:05 AM EDT CTA ABDOMEN PELVIS Routine 04/19/2024 9:04 AM EDT documented in this encounter Results * CT Lung Screening Low dose (04/19/2024 9:05 AM EDT) Anatomical Region Laterality Modality Lung Computed Tomogra phy Historical Provider MD ROMERO CT PROCEDURES Final R esult * CTA ABDOMEN PELVIS (04/19/2024 9:04 AM EDT) Anatomical Region Laterality Modality Computed Tomogra phy us Historical Provider MD ROMERO CT PROCEDURES Final R esult documented in this encounter Visit Diagnoses Not on filedocumented in this encounter Care Teams Mobile Crane Operator Relationship Specialty Start Date End Date Alexy Bae MD [address] [place] [id number] PCP - General Internal Medicine 03/04/22 documented as of this encounter
--- OUTSIDE RECORDS SUMMARY | 2025-01-22 10:36 | XMS_ITS | Encounter Summary ---
Author Organization [employer] Address [address] [facility] [address]t [place] [address] Care Team Providers Care Professor Of Mathematics Name Role Phone Alexy Bae MD Primary Care Provider [phone] Reason for Visit * Reason Onset Date Comments Nurse Triage 08/05/2024 Encounter Details Date Type Department Care Team ([facility] st Contact Info) Description 08/05/2024 Telephone [facility] CHC MED & PEDS [address] [place], [place] [phone] Alexy Bae MD [address] [place], [place] [phone] Nurse Triage Social History Tobacco Use Types Packs/Day Years [...] encounter Miscellaneous Notes * Telephone Encounter - Alexy Bae MD - 08/05/2024 10:38 PM EDT Can you please try to get the MRI scheduled for Mr Abel Obando at [facility]. Has a left arm/wrist pain of unclear etiology. He would need that to be scheduled MARIO. * Telephone Encounter - Lilian Cruz LPN - 08/05/2024 10:39 AM EDT Triage call returned to patient who reports ongoing pain and swelling of left arm and hand. Patientreports recent visit with and no improvement with use of Tramadol for pain. Pain is severe and hand is the size of a balloon Patient is unable to sleep due to discomfort and is elevating hand as much as possible. Patient reports that he was contacted for MRI as ordered but that MRI not scheduled as they are unsure of type of aortic stent placed several weeks ago. Patient with no Stent ID card. Patient reports that swelling and pain in left arm began after aortic repair. No feveror coolness or extremity reported. Disposition reviewed and patient in agreement with plan. Declined Tele today with as he is concerned about his insurance. Prefers PCP appt only ASK/PCP on 08/08/24 1115am. Team tasked to follow with patient with referral for MRI directly to [facility] carlo. May Identifuy Stent type with Surgeon Dr. Chen. Reviewed with patient home care recommendations, reasons to call back and symptoms that require immediate evaluation in UC or ER. Patientverbalized understanding and agrees. Protocol Used: Arm Pain (Adult) Protocol-Based Disposition: Go to Office or Video Visit Now Positive Triage Question: * Severe pain (e.g., excruciating, unable to do any normal activities) * All higher-acuity triage questions were negative Care Advice Discussed: * Pain Medicines * Reasons To Call Back - Signs of infection occur (such as spreading redness, warmth, fever) - You become worse * Telephone Encounter - Opal Harry - 08/05/2024 10:09 AM EDT Symptom: Hand Swelling and arm pain Outcome: Schedule an appointment to be seen within 24 hours Reason: Caller denied all higher acuity questions The caller accepted this outcome. documented in this encounter Plan of Treatment Not on file documented as of this encounter Visit Diagnoses Not on filedocumented in this encounter Care Teams Professor Of Mathematics Relationship Specialty Start Date End Date Alexy Bae MD [address] [place] [id number] PCP - General Internal Medicine 03/04/22 documented as of this encounter
--- OUTSIDE RECORDS SUMMARY | 2025-01-22 10:36 | XMS_ITS | Encounter Summary ---
Author Organization [employer] Address [address] [facility] [address] [place] [address] Care Team Providers Care School Office Assistant Name Role Phone Alexy Bae MD Primary Care Provider [phone] Encounter Details Date Type Department Care Team (Late st Contact Info) Description 08/09/2024 Orders Only [facility] [address] [place] [address] Provider, MD Maury Social History Tobacco Use Types Packs/Day Years Used Date Smoking Tobacco: Some Days Cigarettes Smokeless Tobacco: Never Comments:Now on 10/10 ppd x th e last 2 months. Housing Stability Answer Date Recorded What is your housing situation today? I have lester edyta 07/09/[address] you li [...] Procedure Name Priority Date/Time Associated Diagnosis Comments CTA ABDOMEN PELVIS Routine 08/09/2024 3 :54 PM EDT VASC US LOWER EXTREMITY VENOUS DUPLEX UNILATERAL Routine 08/09/2024 2:13 PM EDT XR CHEST 2 VIEWS Routine 08/09/2024 11:3 7 AM EDT documented in this encounter Results * CTA ABDOMEN PELVIS (08/09/2024 3:54 PM EDT) Anatomical Region Laterality Modality Computed Tomogra phy Historical Provider IMG CT PROCEDURES Final R esult * VASC US Lower Extremity Venous Duplex Unilateral (08/09/2024 2:13 PM EDT) Historical Provider CV VASCULAR PROCEDURES Fi nal Result * XR Chest 2 Views (08/09/2024 11:37 AM EDT) Anatomical Region Laterality Modality Chest Radiographic Goldie ging Historical Provider IMG XR PROCEDURES Final R esult documented in this encounter Visit Diagnoses Not on filedocumented in this encounter Care Teams School Office Assistant Relationship Specialty Start Date End Date Alexy Bae MD [address] [place] [address] PCP - General Internal Medicine 03/04/22 documented as of this encounter
--- OUTSIDE RECORDS SUMMARY | 2025-01-22 10:36 | XMS_ITS | Encounter Summary ---
Author Organization [employer] Address [address] [facility] 7t [place] [address] Care Team Providers Care General Repairer Name Role Phone Alexy Bae MD Primary Care Provider [phone] Encounter Details Date Type Department Care Team (Late st Contact Info) Description 07/25/2024 Orders Only [facility] [address] [place] [address] Provider, MD Maury Social History Tobacco Use [...] Name Priority Date/Time Associated Diagnosis Comments CT ABDOMEN PELVIS W AND WO CONTRAST Routine 07/24/2024 9:51 AM EDT documented in this encounter Results * CT Abdomen Pelvis w/ and w/o Contrast (07/24/2024 9:51 AM EDT) Anatomical Region Laterality Modality Body, Pelvis, Abdomen Computed T omography us Historical Provider MD ROMERO CT PROCEDURES Final R esult documented in this encounter Visit Diagnoses Not on filedocumented in this encounter Care Teams General Repairer Relationship Specialty Start Date End Date Alexy Bae MD [address] [place] [address] PCP - General Internal Medicine 03/04/22 documented as of this encounter
[2025-01-23 08:53] LABS: ~HepC Num1 0.18 S/CO (0.00-0.79); ~Hepatitis C Antibody Nonreactive (Nonreactive)
== END 2025-01-22 09:33 | disposition home or self-care (01) ==
LOC: HO.CHCLDS 09:32
PROVIDERS: Visit Provider Internal Medicine
DX: N40.0 Benign prostatic hyperplasia without lower urinary tract symptoms (principal)
CPT/HCPCS: 36415; 86803